=== PATIENT | male | born 1935 | race Caucasian/White ===

== ENCOUNTER 2016-10-02 06:49 | Emergency (ER) | payer MEDICARE ==
[2016-10-02] MEDS: IPRATROPIUM/ALBUTEROL (0.5MG/3MG) NEB INH ONE (07:35)
--- NOTE | 2016-10-02 07:42 | Emergency Department Record ---
History of Present Illness - General Chief Complaint: Cough Stated Complaint: NOT FEEELING WELL Time Seen by Provider: 10/02/16 07:14 Source: Patient, RN notes reviewed Mode of Arrival: Ambulatory - History of Present Illness Initial Comments: four weeks of cough and started when in [place] and he was on a bus tour and lots of people coughing and he saw his primary Dr. Palomares and given augmentin and oral prednisone and finished that a couple of days ago and it did help some turned the sputum from green to clear but coughing is getting worse again. PMH CAD and stent placed 2014 and hip surg 2014. 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 Shingles Jul 2016 rash gone and not painful. Patient also has proair and advair. Complaint: Cough Onset/Timin -: Week(s) Severity scale (1-10): 7 - Related Data Home Medications Medication Instructions Recorded Confirmed Last Taken Albuterol Sulfate [Proair Hfa] 1 - 2 puff IH .EVERY 4-6 HOURS PRN 10/02/1610/02 Unknown Aspirin 81 mg PO DAILY 10/02/16 10/02/16 Unknown Carvedilol [Coreg] 3.125 mg PO BID 10/02/16 10/02/16 Unknown Clopidogrel Bisulfate [Plavix] 75 mg PO DAILY 10/02/16 10/02/16 Unknown Fluticasone/Salmeterol 250/50 1 each IH Q12H 10/02/16 10/02/16 Unknown [Advair 250/50] Furosemide [Lasix] 80 mg PO DAILY 10/02/16 10/02/16 Unknown [place]-3/Dha/Epa/Fish Oil [Fish Oil 1,000 mg PO DAILY 10/02/16 10/02/16 Unknown 1,000 mg Softgel] Potassium Chloride [Klor-Con] 20 meq PO DAILY 10/02/16 10/02/16 Unknown Allergies Allergy/AdvReac Type Severity Reaction Status Date / Time JACOBY Inhibitors Allergy Unknown PT UNSURE Verified 11/16/15 13:50 [JACOBY INHIBITORS] OF REACTION lisinopril Allergy PT UNSURE Verified 10/02/16 06:52 OF REACTION [id number] Reductase AdvReac MUSCLE PAIN Verified 11/16/15 13:50 Inhibitor Nasal [place] Allergy PT UNSURE Uncoded 11/16/15 13:50 OF REACTION Travel Screening - Travel/Exposure Within Last 30 Days Have you traveled within the last 30 days?: No - Travel Symptoms Symptom Screening: None Review of Systems Reviewed: No additional complaints except as noted below Constitutional: Reports: As per HPI. Denies: Chills, Fever, Malaise, Night sweats, Weakness, Weight change Eyes: Reports: As per HPI. Denies: Eye discharge, Eye pain, Photophobia, Vision change ENT: Reports: As per HPI, Congestion. Denies: Dental pain, Ear pain, Epistaxis , Hearing loss, Throat pain Respiratory: Reports: As per HPI, Cough, Dyspnea, Wheezes. Denies: Hemoptysis, Stridor Cardiovascular: Reports: As per HPI. Denies: Arrhythmia, Chest pain, Dyspnea on exertion, Edema, Murmurs, Orthopnea, Palpitations, Paroxysmal nocturnal dyspnea, Rheumatic Fever, Syncope Endocrine: Reports: As per HPI. Denies: Fatigue, Heat or cold intolerance, Polydipsia, Polyuria Gastrointestinal: Reports: As per HPI. Denies: Abdominal pain, Constipation, Diarrhea, Hematemesis, Hematochezia, Melena, Nausea, Vomiting Genitourinary: Reports: As per HPI. Denies: Dysuria, Frequency, Hematuria, Incontinence, Retention, Testicular pain, Testicular mass, Urgency Musculoskeletal: Reports: As per HPI. Denies: Arthralgia, Back pain, Gout, Joint swelling, Myalgia, Neck pain Skin: Reports: As per HPI. Denies: Bruising, Change in color, Change in hair/ nails, Lesions, Pruritus, Rash Neurological: Reports: As per HPI. Denies: Abnormal gait, Confusion, Headache, Numbness, Paresthesias, Seizure, Tingling, Tremors, Vertigo, Weakness Psychiatric: Reports: As per HPI. Denies: Anxiety, Auditory hallucinations, Depression, Homicidal thoughts, Suicidal thoughts, Visual hallucinations Hematological/Lymphatic: Reports: As per HPI. Denies: Anemia, Blood Clots, Easy bleeding, Easy bruising, Swollen glands Past Medical History - SOCIAL HISTORY Smoking Status: Never smoker - RESPIRATORY Hx Respiratory Disorders: Yes Hx Asthma: Yes - CARDIOVASCULAR Hx Cardio Disorders: Yes Hx Cardiac Cath: Yes Hx Hypertension: Yes - NEURO Hx Neuro Disorders: No - GI Hx GI Disorders: No - Hx Genitourinary Disorders: Yes Hx Prostate Problems: Yes (Prostate Removed (cancer)) - ENDOCRINE Hx Endocrine Disorders: No - MUSCULOSKELETAL Hx Musculoskeletal Disorders: Yes Hx Back Injury: Yes - PSYCH Hx Psych Problems: No - HEMATOLOGY/ONCOLOGY Hx Hematology/Oncology Disorders: Yes Hx Cancer: Yes (Prostate) Hx Chemotherapy: No 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 negative: External canal tenderness Nasal Exam: Normal inspection. negative: Discharge, Sinus tenderness Mouth exam: Normal external inspection, Tongue normal Teeth exam: Normal inspection. negative: Dental caries Throat exam: Normal inspection, Other (hoarse voice,raspy). negative: Tonsillar erythema, Tonsillar exudate - Neck Neck exam: Normal inspection, Full ROM. negative: Tenderness - Respiratory Respiratory exam: Normal lung sounds bilaterally, Wheezes. negative: Respiratory distress - Cardiovascular Cardiovascular Exam: Regular rate, Normal rhythm, Normal heart sounds - GI/Abdominal GI/Abdominal exam: Soft, Normal bowel sounds. negative: Tenderness - Rectal Rectal exam: Deferred - exam: Deferred - Extremities Extremities exam: Normal inspection, Full ROM, Normal capillary refill. negative: Tenderness - Back Back exam: Reports: Normal inspection, Full ROM. Denies: Muscle spasm, Rash noted, Tenderness - Neurological Neurological exam: Alert, Normal gait, Oriented X3, Reflexes normal - Psychiatric Psychiatric exam: Normal affect, Normal mood - Skin Skin exam: Dry, Intact, Normal color, Warm Course Vital Signs 10/02/16 06:53 Temperature 97.9 F Pulse Rate 86 Respiratory 18 Rate Blood Pressure 128/92 Pulse Ox 99 - Reevaluation(s) Reevaluation #1: discussed case with Dr. Lemons and he wants medicine to take the case and he will consult 10/02/16 09:35 Reevaluation #2: discussed case with dr. Bedolla and will transfer to [facility] via ambulance. 10/02/16 09:42 Medical Decision Making - Data Complexity MDM Data: Labs Ordered and/or Reviewed (troponin indeterminate, BNP up), X-Ray Ordered and/or Reviewed (cardiomegaly and COPD and small pleural effusion), EKG Ordered and/or Reviewed (EKG new onset RBBB, possible atrial fib and rate is in the normal range) - Lab Data Result diagrams: 10/02/16 07:40 10/02/16 07:40 Disposition Clinical Impression: Bronchitis, COPD (chronic obstructive pulmonary disease) with acute bronchitis , Elevated troponin I level, Right bundle branch block, Cardiomegaly CAD (coronary artery disease) Qualifiers: Coronary Disease-Associated Artery/Lesion type: unspecified vessel or lesion type [place] vs. transplanted heart: [place] heart Associated angina: without angina Qualified Code(s): I25.10 - Atherosclerotic heart disease of [place] coronary artery without angina pectoris Disposition: Acute Care Hospital Transfer Condition: (2) Stable Forms: Patient Portal Access Time of Disposition: 09:48
[2016-10-02] MEDS: 0.9 % SODIUM CHLORIDE 1000ML 1,000 ML IV PRN (07:43)
[2016-10-02] MEDS: METHYLPREDNISOLONE PF 125MG/VIAL IVP ONE (07:44)
[2016-10-02 07:49] LABS: BASO % 1.1 % (0-6); GRAN % 79.1 % (47-80); HEMOGLOBIN 13.9 gm/dl (14.0-18.0); LYMPH % 8.5 % (16-45); MEAN CELL VOLUME 96.5 fl (81-97); MEAN CORPUSCULAR HEMOGLOBIN 32.7 pg (27-33); MEAN CORPUSCULAR HGB CONC 33.9 g/dl (32-36); MONO % 11.3 % (0-9); PLATELET COUNT 170 K/uL (130-400); RED BLOOD COUNT 4.25 M/uL (4.40-5.70); RED CELL DISTRIBUTION WIDTH 13.9 % (11.5-14.5); WHITE BLOOD COUNT W/O DIFF 5.7 K/uL (4.2-12.2)
[2016-10-02] MEDS: GUAIFENESIN/D-METH. 10 ML UDC PO ONE (07:49)
[2016-10-02 08:51] LABS: ANION GAP 10.1 (7-16); BLOOD UREA NITROGEN 18 mg/dL (9-20); CARBON DIOXIDE 25.9 mmol/L (22-30); CREATININE 0.8 mg/dL (0.66-1.25); EST GLOMERULAR FILTRATION RATE > 60 ml/min; GLUCOSE,RANDOM 99 mg/dL (70-110)
[2016-10-02] MEDS: AZITHROMYCIN 500 MG in 0.9 % SODIUM CHLORIDE 250ML 250 ML IVPB ONE (08:55)
[2016-10-02] MEDS: ASPIRIN 81 MG CHEWABLE TABLET PO ONE (08:58)
[2016-10-02 09:00] LABS: CKMB 3.6 ug/L (0-6)
[2016-10-02] MEDS ORDERED: ACETAMINOPHEN WITH CODEINE 5 ML SOLUTION PO ONE (09:01)
[2016-10-02] MEDS: PROMETHAZINE W/CODEINE 10ML UD PO ONE (09:06)
[2016-10-02] MEDS: FUROSEMIDE IV 40MG/4ML VIAL IVP ONE (10:07)
[2016-10-02] MEDS: CEFTRIAXONE SODIUM 1 GM in 0.9 % SODIUM CHLORIDE 100ML 100 ML IVPB ONE (10:07)
== END 2016-10-02 15:19 | disposition short-term general hospital (02) ==
LOC: ER 06:49
DX: J44.0 Chronic obstructive pulmonary disease with (acute) lower respiratory infection (principal); J20.9 Acute bronchitis, unspecified; R60.0 Localized edema; I45.10 Unspecified right bundle-branch block; R79.89 Other specified abnormal findings of blood chemistry; I25.10 Atherosclerotic heart disease of native coronary artery without angina pectoris; I10 Essential (primary) hypertension; I51.7 Cardiomegaly
CPT/HCPCS: 71020; 80048; 82553; 83880; 84484; 85025; 85730; 93005; 93010; 94640; 96365; 96366; 96367; 96375; 99285; J0456; J1940; J2930; J7050

== ENCOUNTER 2016-10-09 15:49 | Emergency (ER) | payer MEDICARE ==
[2016-10-09] MEDS: ASPIRIN 81 MG CHEWABLE TABLET PO ONE (18:29)
[2016-10-09] MEDS: FUROSEMIDE IV 40MG/4ML VIAL IVP ONE (18:29)
--- NOTE | 2016-10-09 18:36 | Emergency Department Record ---
History of Present Illness - General Chief Complaint: Cough Stated Complaint: CHEST CONGESTION/WALLY Time Seen by Provider: 10/09/16 17:23 Source: Patient, RN notes reviewed Mode of Arrival: Ambulatory - History of Present Illness Onset/Timin -: Week(s) Consistency: Constant - Related Data Home Medications Medication Instructions Recorded Confirmed Last Taken Albuterol Sulfate [Proair Hfa] 1 - 2 puff IH .EVERY 4-6 HOURS PRN 10/02/1610/0210/09/16 Aspirin 81 mg PO DAILY 10/02/16 10/02/16 10/09/16 Carvedilol [Coreg] 3.125 mg PO BID 10/02/16 10/02/16 10/09/16 Clopidogrel Bisulfate [Plavix] 75 mg PO DAILY 10/02/16 10/02/16 10/09/16 Fluticasone/Salmeterol 250/50 1 each IH Q12H 10/02/16 10/02/16 10/09/16 [Advair 250/50] Furosemide [Lasix] 80 mg PO DAILY 10/02/16 10/02/16 10/09/16 [place]-3/Dha/Epa/Fish Oil [Fish Oil 1,000 mg PO DAILY 10/02/16 10/02/16 10/09/16 1,000 mg Softgel] Potassium Chloride [Klor-Con] 20 meq PO DAILY 10/02/16 10/02/16 10/09/16 Metoprolol Succinate [Metoprolol 25 mg PO DAILY 10/09/16 10/09/16 10/09/16 Succinate] Allergies Allergy/AdvReac Type Severity Reaction Status Date / Time JACOBY Inhibitors Allergy Unknown PT UNSURE Verified 10/09/16 16:17 [JACOBY INHIBITORS] OF REACTION lisinopril Allergy PT UNSURE Verified 10/09/16 16:17 OF REACTION [id number]-[id number]-[id number] Reductase AdvReac MUSCLE PAIN Verified 10/09/16 16:17 Inhibitor Nasal [place] Allergy PT UNSURE Uncoded 11/16/15 13:50 OF REACTION Travel Screening - Travel/Exposure Within Last 30 Days Have you traveled within the last 30 days?: No - Travel/Exposure Within Last Year Have you traveled outside the [place] in the last year?: No - Additonal Travel Details Have you been exposed to anyone with a communicable illness?: No - Travel Symptoms Symptom Screening: None Past Medical History - SOCIAL HISTORY Smoking Status: Never smoker Alcohol Use: None Drug Use: None - RESPIRATORY Hx Respiratory Disorders: Yes Hx Asthma: Yes - CARDIOVASCULAR Hx Cardio Disorders: Yes Hx Cardiac Cath: Yes Hx Hypertension: Yes - NEURO Hx Neuro Disorders: No - GI Hx GI Disorders: No - Hx Genitourinary Disorders: Yes Hx Prostate Problems: Yes (Prostate Removed (cancer)) - ENDOCRINE Hx Endocrine Disorders: No - MUSCULOSKELETAL Hx Musculoskeletal Disorders: Yes Hx Back Injury: Yes - PSYCH Hx Psych Problems: No - HEMATOLOGY/ONCOLOGY Hx Hematology/Oncology Disorders: Yes Hx Cancer: Yes (Prostate) Hx Chemotherapy: No 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
--- NOTE | 2016-10-09 18:39 | Emergency Department Record ---
History of Present Illness - General Chief Complaint: Cough Stated Complaint: CHEST CONGESTION/WALLY Time Seen by Provider: 10/09/16 17:23 Source: Patient, RN notes reviewed Mode of Arrival: Ambulatory - History of Present Illness Initial Comments: patient released from [facility] friday 4 days ago and he is retaining fluid and his weight is up and he was treated for bronchitis COPD exacerbation and elevated troponin I and he was given steroids and prednisone and he had a stress test at [facility] which was negative on his heart. scrotum is swollen Onset/Timin -: Week(s) Consistency: Constant - Related Data Home Medications Medication Instructions Recorded Confirmed Last Taken Albuterol Sulfate [Proair Hfa] 1 - 2 puff IH .EVERY 4-6 HOURS PRN 10/02/1610/0210/09/16 Aspirin 81 mg PO DAILY 10/02/16 10/02/16 10/09/16 Carvedilol [Coreg] 3.125 mg PO BID 10/02/16 10/02/16 10/09/16 Clopidogrel Bisulfate [Plavix] 75 mg PO DAILY 10/02/16 10/02/16 10/09/16 Fluticasone/Salmeterol 250/50 1 each IH Q12H 10/02/16 10/02/16 10/09/16 [Advair 250/50] Furosemide [Lasix] 80 mg PO DAILY 10/02/16 10/02/16 10/09/16 [place]-3/Dha/Epa/Fish Oil [Fish Oil 1,000 mg PO DAILY 10/02/16 10/02/16 10/09/16 1,000 mg Softgel] Potassium Chloride [Klor-Con] 20 meq PO DAILY 10/02/16 10/02/16 10/09/16 Metoprolol Succinate [Metoprolol 25 mg PO DAILY 10/09/16 10/09/16 10/09/16 Succinate] Allergies Allergy/AdvReac Type Severity Reaction Status Date / Time JACOBY Inhibitors Allergy Unknown PT UNSURE Verified 10/09/16 16:17 [JACOBY INHIBITORS] OF REACTION lisinopril Allergy PT UNSURE Verified 10/09/16 16:17 OF REACTION [place]-[id number]-Ofx Reductase AdvReac MUSCLE PAIN Verified 10/09/16 16:17 Inhibitor Nasal [place] Allergy PT UNSURE Uncoded 11/16/15 13:50 OF REACTION Travel Screening - Travel/Exposure Within Last 30 Days Have you traveled within the last 30 days?: No - Travel/Exposure Within Last Year Have you traveled outside the [place] in the last year?: No - Additonal Travel Details Have you been exposed to anyone with a communicable illness?: No - Travel Symptoms Symptom Screening: None Review of Systems Reviewed: No additional complaints except as noted below Constitutional: Reports: As per HPI. Denies: Chills, Fever, Malaise, Night sweats, Weakness, Weight change Eyes: Reports: As per HPI. Denies: Eye discharge, Eye pain, Photophobia, Vision change ENT: Reports: As per HPI, Congestion. Denies: Dental pain, Ear pain, Epistaxis , Hearing loss, Throat pain Respiratory: Reports: As per HPI, Cough. Denies: Dyspnea, Hemoptysis, Stridor, Wheezes Cardiovascular: Reports: As per HPI, Edema. Denies: Arrhythmia, Chest pain, Dyspnea on exertion, Murmurs, Orthopnea, Palpitations, Paroxysmal nocturnal dyspnea, Rheumatic Fever, Syncope Endocrine: Reports: As per HPI. Denies: Fatigue, Heat or cold intolerance, Polydipsia, Polyuria Gastrointestinal: Reports: As per HPI. Denies: Abdominal pain, Constipation, Diarrhea, Hematemesis, Hematochezia, Melena, Nausea, Vomiting Genitourinary: Reports: As per HPI. Denies: Dysuria, Frequency, Hematuria, Incontinence, Retention, Testicular pain, Testicular mass, Urgency Musculoskeletal: Reports: As per HPI. Denies: Arthralgia, Back pain, Gout, Joint swelling, Myalgia, Neck pain Skin: Reports: As per HPI. Denies: Bruising, Change in color, Change in hair/ nails, Lesions, Pruritus, Rash Neurological: Reports: As per HPI. Denies: Abnormal gait, Confusion, Headache, Numbness, Paresthesias, Seizure, Tingling, Tremors, Vertigo, Weakness Psychiatric: Reports: As per HPI. Denies: Anxiety, Auditory hallucinations, Depression, Homicidal thoughts, Suicidal thoughts, Visual hallucinations Hematological/Lymphatic: Reports: As per HPI. Denies: Anemia, Blood Clots, Easy bleeding, Easy bruising, Swollen glands Past Medical History - SOCIAL HISTORY Smoking Status: Never smoker Alcohol Use: None Drug Use: None - RESPIRATORY Hx Respiratory Disorders: Yes Hx Asthma: Yes - CARDIOVASCULAR Hx Cardio Disorders: Yes Hx Cardiac Cath: Yes Hx Hypertension: Yes - NEURO Hx Neuro Disorders: No - GI Hx GI Disorders: No - Hx Genitourinary Disorders: Yes Hx Prostate Problems: Yes (Prostate Removed (cancer)) - ENDOCRINE Hx Endocrine Disorders: No - MUSCULOSKELETAL Hx Musculoskeletal Disorders: Yes Hx Back Injury: Yes - PSYCH Hx Psych Problems: No - HEMATOLOGY/ONCOLOGY Hx Hematology/Oncology Disorders: Yes Hx Cancer: Yes (Prostate) Hx Chemotherapy: No 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 negative: External canal tenderness Nasal Exam: Normal inspection. negative: Discharge, Sinus tenderness Mouth exam: Normal external inspection, Tongue normal Teeth exam: Normal inspection. negative: Dental caries Throat exam: Normal inspection. negative: Tonsillar erythema, Tonsillar exudate - Neck Neck exam: Normal inspection, Full ROM. negative: Tenderness - Respiratory Respiratory exam: Normal lung sounds bilaterally. negative: Respiratory distress - Cardiovascular Cardiovascular Exam: Regular rate, Normal rhythm, Normal heart sounds - GI/Abdominal GI/Abdominal exam: Soft, Normal bowel sounds. negative: Tenderness - Rectal Rectal exam: Deferred - exam: Deferred - Extremities Extremities exam: Normal inspection, Full ROM, Normal capillary refill. negative: Tenderness - Back Back exam: Reports: Normal inspection, Full ROM. Denies: Muscle spasm, Rash noted, Tenderness - Neurological Neurological exam: Alert, Normal gait, Oriented X3, Reflexes normal - Psychiatric Psychiatric exam: Normal affect, Normal mood - Skin Skin exam: Dry, Intact, Normal color, Warm Course Vital Signs 10/09/16 16:19 Temperature 97.7 F Pulse Rate 72 Respiratory 20 Rate Blood Pressure 107/74 Pulse Ox 92 L - Reevaluation(s) Reevaluation #1: Care over to Dr. Rey 10/09/16 18:47 Medical Decision Making - Data Complexity MDM Data: EKG Ordered and/or Reviewed (right BBB) - Lab Data Result diagrams: 10/09/16 18:02 10/09/16 18:02 Disposition Clinical Impression: COPD (chronic obstructive pulmonary disease) with acute bronchitis Edema Qualifiers: Edema type: unspecified Qualified Code(s): R60.9 - Edema, unspecified Forms: Patient Portal Access
[2016-10-09 18:56] LABS: HEMATOCRIT 45.4 % (42.0-52.0); HEMOGLOBIN 15.3 gm/dl (14.0-18.0); MEAN CORPUSCULAR HEMOGLOBIN 32.3 pg (27-33); MEAN CORPUSCULAR HGB CONC 33.7 g/dl (32-36); PLATELET COUNT 226 K/uL (130-400); RED BLOOD COUNT 4.73 M/uL (4.40-5.70); RED CELL DISTRIBUTION WIDTH 13.7 % (11.5-14.5); WHITE BLOOD COUNT W/O DIFF 10.6 K/uL (4.2-12.2)
[2016-10-09 19:06] LABS: ANION GAP 8.5 (7-16); BLOOD UREA NITROGEN 28 mg/dL (9-20); CARBON DIOXIDE 34.5 mmol/L (22-30); CREATININE 0.9 mg/dL (0.66-1.25); EST GLOMERULAR FILTRATION RATE > 60 ml/min; GLUCOSE,RANDOM 83 mg/dL (70-110)
[2016-10-09 19:09] LABS: INFLUENZA A NEGATIVE (NEGATIVE); INFLUENZA B NEGATIVE (NEGATIVE)
[2016-10-09 19:18] LABS: CKMB 5.8 ug/L (0-6)
[2016-10-09 19:39] LABS: TROPONIN I 0.332 ng/mL (0.00-0.034)
[2016-10-09] MEDS: POTASSIUM CHLORIDE 20 MEQ TABLET PO ONE (21:07)
--- NOTE | 2016-10-09 21:24 | Emergency Department Record ---
History of Present Illness - General Chief Complaint: Cough Stated Complaint: CHEST CONGESTION/WALLY Time Seen by Provider: 10/09/16 17:23 Source: Patient, RN notes reviewed Mode of Arrival: Ambulatory - History of Present Illness Onset/Timin Consistency: Constant - Related Data Home Medications Medication Instructions Recorded Confirmed Last Taken Albuterol Sulfate [Proair Hfa] 1 - 2 puff IH .EVERY 4-6 HOURS PRN 10/02/1610/0210/09/16 Aspirin 81 mg PO DAILY 10/02/16 10/02/16 10/09/16 Carvedilol [Coreg] 3.125 mg PO BID 10/02/16 10/02/16 10/09/16 Clopidogrel Bisulfate [Plavix] 75 mg PO DAILY 10/02/16 10/02/16 10/09/16 Fluticasone/Salmeterol 250/50 1 each IH Q12H 10/02/16 10/02/16 10/09/16 [Advair 250/50] Furosemide [Lasix] 80 mg PO DAILY 10/02/16 10/02/16 10/09/16 [place]-3/Dha/Epa/Fish Oil [Fish Oil 1,000 mg PO DAILY 10/02/16 10/02/16 10/09/16 1,000 mg Softgel] Potassium Chloride [Klor-Con] 20 meq PO DAILY 10/02/16 10/02/16 10/09/16 Metoprolol Succinate [Metoprolol 25 mg PO DAILY 10/09/16 10/09/16 10/09/16 Succinate] Allergies Allergy/AdvReac Type Severity Reaction Status Date / Time JACOBY Inhibitors Allergy Unknown PT UNSURE Verified 10/09/16 16:17 [JACOBY INHIBITORS] OF REACTION lisinopril Allergy PT UNSURE Verified 10/09/16 16:17 OF REACTION [id number] Reductase AdvReac MUSCLE PAIN Verified 10/09/16 16:17 Inhibitor Nasal Jerome Allergy PT UNSURE Uncoded 11/16/15 13:50 OF REACTION Travel Screening - Travel/Exposure Within Last 30 Days Have you traveled within the last 30 days?: No - Travel/Exposure Within Last Year Have you traveled outside the [place] in the last year?: No - Additonal Travel Details Have you been exposed to anyone with a communicable illness?: No - Travel Symptoms Symptom Screening: None Review of Systems Constitutional: Reports: As per HPI. Denies: Chills, Fever, Malaise, Night sweats, Weakness, Weight change Eyes: Reports: As per HPI. Denies: Eye discharge, Eye pain, Photophobia, Vision change ENT: Reports: As per HPI, Congestion. Denies: Dental pain, Ear pain, Epistaxis , Hearing loss, Throat pain Respiratory: Reports: As per HPI, Cough. Denies: Dyspnea, Hemoptysis, Stridor, Wheezes Cardiovascular: Reports: As per HPI, Edema. Denies: Arrhythmia, Chest pain, Dyspnea on exertion, Murmurs, Orthopnea, Palpitations, Paroxysmal nocturnal dyspnea, Rheumatic Fever, Syncope Endocrine: Reports: As per HPI. Denies: Fatigue, Heat or cold intolerance, Polydipsia, Polyuria Gastrointestinal: Reports: As per HPI. Denies: Abdominal pain, Constipation, Diarrhea, Hematemesis, Hematochezia, Melena, Nausea, Vomiting Genitourinary: Reports: As per HPI. Denies: Dysuria, Frequency, Hematuria, Incontinence, Retention, Testicular pain, Testicular mass, Urgency Musculoskeletal: Reports: As per HPI. Denies: Arthralgia, Back pain, Gout, Joint swelling, Myalgia, Neck pain Skin: Reports: As per HPI. Denies: Bruising, Change in color, Change in hair/ nails, Lesions, Pruritus, Rash Neurological: Reports: As per HPI. Denies: Abnormal gait, Confusion, Headache, Numbness, Paresthesias, Seizure, Tingling, Tremors, Vertigo, Weakness Psychiatric: Reports: As per HPI. Denies: Anxiety, Auditory hallucinations, Depression, Homicidal thoughts, Suicidal thoughts, Visual hallucinations Hematological/Lymphatic: Reports: As per HPI. Denies: Anemia, Blood Clots, Easy bleeding, Easy bruising, Swollen glands Past Medical History - SOCIAL HISTORY Smoking Status: Never smoker Alcohol Use: None Drug Use: None - RESPIRATORY Hx Respiratory Disorders: Yes Hx Asthma: Yes - CARDIOVASCULAR Hx Cardio Disorders: Yes Hx Cardiac Cath: Yes Hx Hypertension: Yes - NEURO Hx Neuro Disorders: No - GI Hx GI Disorders: No - Hx Genitourinary Disorders: Yes Hx Prostate Problems: Yes (Prostate Removed (cancer)) - ENDOCRINE Hx Endocrine Disorders: No - MUSCULOSKELETAL Hx Musculoskeletal Disorders: Yes Hx Back Injury: Yes - PSYCH Hx Psych Problems: No - HEMATOLOGY/ONCOLOGY Hx Hematology/Oncology Disorders: Yes Hx Cancer: Yes (Prostate) Hx Chemotherapy: No Hx Radiation Therapy: Yes (R nostril-for skin CA) Family Medical History Any Significant Family History?: Yes Hx Cancer: Father, Grandparents Hx Diabetes: Mother Hx Heart Disease: Mother Hx HTN: Mother Course Vital Signs 10/09/16 10/09/16 10/09/16 16:19 19:28 21:10 Temperature 97.7 F Pulse Rate 72 Pulse Rate [ 80 74 Recycling Sorter ] Respiratory 20 24 16 Rate Blood Pressure 107/74 Blood Pressure 135/95 127/94 [Right Arm] Pulse Ox 92 L 100 98 - Reevaluation(s) Reevaluation #1: 10/09/16 21:21 pts troponin is 3x what it was when he was in [facility] 4 days ago. pt has diuresed 1800cc. dr kimberly galeana, no answer. [facility] one call called. 10/09/16 22:03 Reevaluation #2: 10/09/16 22:03 [facility] has no stepdown beds so pt is being transferred to dr stephanie Jimenez Medical Decision Making - Lab Data Result diagrams: 10/09/16 18:45 10/09/16 18:45 Lab Results 10/09/16 10/09/16 10/09/16 Range/Units 18:45 18:45 18:45 WBC 10.6 (4.2-12.2) K/uL RBC 4.73 (4.40-5.70) M/uL Hgb 15.3 (14.0-18.0) gm/dl Hct 45.4 (42.0-52.0) % MCV 96.0 (81-97) fl MCH 32.3 (27-33) pg MCHC 33.7 (32-36) g/dl RDW 13.7 (11.5-14.5) % Plt Count 226 (130-400) K/uL MPV 10.0 (7.4-10.4) fl Neutrophils % 65.0 (47-80) % Lymphocytes % 18.0 (16-45) % Monocytes % 17.0 H (0-9) % Eosinophils % Not Reportable Basophils % Not Reportable APTT 23.80 L (24.5-39.1) SECONDS Sodium (136-145) mmol/L Potassium (3.5-5.1) mmol/L Chloride (98-107) mmol/L Carbon Dioxide (22-30) mmol/L Anion Gap (7-16) BUN (9-20) mg/dL Creatinine (0.66-1.25) mg/dL Estimated GFR ml/min Random Glucose (70-110) mg/dL Calcium (8.5-10.1) mg/dL CK-MB (CK-2) (0-6) ug/L Troponin I (0.00-0.034) ng/mL NT-Pro-B Natriuret Pep (<450) pg/mL Influenza Type A Ag Negative (NEGATIVE) Influenza Type B Ag Negative (NEGATIVE) 10/09/16 10/09/16 Range/Units 18:45 20:48 WBC (4.2-12.2) K/uL RBC (4.40-5.70) M/uL Hgb (14.0-18.0) gm/dl Hct (42.0-52.0) % MCV (81-97) fl MCH (27-33) pg MCHC (32-36) g/dl RDW (11.5-14.5) % Plt Count (130-400) K/uL MPV (7.4-10.4) fl Neutrophils % (47-80) % Lymphocytes % (16-45) % Monocytes % (0-9) % Eosinophils % Basophils % APTT (24.5-39.1) SECONDS Sodium 136 (136-145) mmol/L Potassium 3.1 L (3.5-5.1) mmol/L Chloride 93 L (98-107) mmol/L Carbon Dioxide 34.5 H (22-30) mmol/L Anion Gap 8.5 (7-16) BUN 28 H (9-20) mg/dL Creatinine 0.9 (0.66-1.25) mg/dL Estimated GFR > 60 ml/min Random Glucose 83 (70-110) mg/dL Calcium 8.6 (8.5-10.1) mg/dL CK-MB (CK-2) 5.8 (0-6) ug/L Troponin I 0.332 H* (0.00-0.034) ng/mL NT-Pro-B Natriuret Pep 4590.00 H (<450) pg/mL Influenza Type A Ag (NEGATIVE) Influenza Type B Ag (NEGATIVE) Disposition Disposition: Transfer Clinical Impression: COPD (chronic obstructive pulmonary disease) with acute bronchitis, Elevated troponin Edema Qualifiers: Edema type: unspecified Qualified Code(s): R60.9 - Edema, unspecified Acute CHF (congestive heart failure) Qualifiers: Congestive heart failure type: unspecified congestive heart failure type Qualified Code(s): I50.9 - Heart failure, unspecified Transfer To: [facility] Reason For Transfer: needs air traffic control specialist center Accepting Physician: dr brown Time Discussed w/Accepting Physician: 21:50 Forms: Patient Portal Access
== END 2016-10-09 22:35 | disposition short-term general hospital (02) ==
LOC: ER 15:49
DX: J44.0 Chronic obstructive pulmonary disease with (acute) lower respiratory infection (principal); J20.9 Acute bronchitis, unspecified; I50.9 Heart failure, unspecified; R79.89 Other specified abnormal findings of blood chemistry; R06.00 Dyspnea, unspecified; I10 Essential (primary) hypertension
CPT/HCPCS: 71020; 80048; 82553; 83880; 84484; 85027; 85730; 87400; 93005; 93010; 96374; 99285; J1940

== ENCOUNTER 2017-01-20 09:00 | Day surgery (SDC) | payer MEDICARE ==
[2017-01-20] MEDS ORDERED: FENTANYL PF 100MCG/2ML VIAL IV ONE (13:43)
[2017-01-20] MEDS ORDERED: LIDOCAINE 2% MDV (20MG/ML) 20ML VIAL IV ONE (13:43)
[2017-01-20] MEDS ORDERED: PROPOFOL 10 MG/ML VIAL IV ONE (13:43)
--- NOTE | 2017-01-22 13:42 | Operative Note ---
DATE OF SURGERY: 01/20/2017 OPERATION: ESOPHAGOGASTRODUODENOSCOPY with multiple biopsies. INDICATION: Dysphagia. The patient had an abnormal upper GI x-ray suggesting possible narrowing at the distal esophagus. He was also found to have a hiatal hernia. He complains, however, of oropharyngeal dysphagia to pills saying it is sometimes difficult to swallow and he brings it back up to swallow again. He denies pyrosis. This was his first endoscopy. ANESTHESIA: Intravenous sedation was administered by the department of anesthesiology and included Diprivan titrated to effect. PROCEDURE: Following informed consent from this alert individual, including a discussion of the risks and benefits of the procedure and an opportunity for the patient to ask questions, the patient was placed in the left lateral decubitus position. The Olympus [id number] video endoscope was inserted into the posterior pharynx which appeared to be unremarkable. Vocal cords were normal. The proximal esophagus had a normal appearance with normal folds and distensibility. 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 There were no raised areas, ulcerations, or erosions noted. Distal to this was a 2-3 cm hiatal hernia which was free from mucosal changes. The remainder of the stomach was endoscopically unremarkable. The pylorus was patent. The duodenal bulb, sweep and descending duodenum were examined in a serial fashion and found to be normal. The endoscope was then drawn back in the body of the stomach. Retroflexion accomplished following air insufflation again revealed a hiatal hernia. No other changes were appreciated. The endoscope was then straightened and withdrawn back into the distal esophagus where multiple biopsies were taken from throughout the distal esophageal segment noted to have Caputo's epithelium. The tissue was extremely friable and bled fairly easily. This limited the number of biopsies taken. After biopsies were completed, the endoscope was then withdrawn. No additional changes were noted. The patient tolerated the procedure well and was returned to the recovery area in stable condition. 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 Biopsies taken. 2. A 2-3 cm hiatal hernia. RECOMMENDATION: The patient's dysphagia is most likely oropharyngeal in type, as it is difficult swallowing pills. He states that he has no difficulty after swallowing has been completed. For this reason, I would like to obtain a triple-phase deglutition study and have the patient follow up. He will continue on Protonix 40 mg daily for the Caputo's epithelium and further recommendations forthcoming pending biopsy. Followup will also be with Dr. Uriel Palomares. As always, thank you for allowing me to participate in the care of your patient. CC: Dr. Uriel CARROLL
== END 2017-01-20 10:30 | disposition home or self-care (01) ==
LOC: HOP 09:00
PROVIDERS: ATTEND Internal Medicine Gastroenterology
DX: R13.12 Dysphagia, oropharyngeal phase (principal); K22.70 Barrett's esophagus without dysplasia; K44.9 Diaphragmatic hernia without obstruction or gangrene; I10 Essential (primary) hypertension; I50.9 Heart failure, unspecified